=== PATIENT | female | born 1970 | race Caucasian/White ===

== ENCOUNTER → 2018-04-20 | Outpatient (CLI) | payer MEDICAID | LOC: SBRMNEURO 21:00 | PROVIDERS: ATTEND Internal Medicine Sleep Medicine | DX: G47.61 Periodic limb movement disorder (principal) ==

== ENCOUNTER → 2018-06-16 | Outpatient (CLI) | payer MEDICAID | LOC: CIMAGING 16:14 | PROVIDERS: ATTEND Family Medicine | DX: M89.372 Hypertrophy of bone, left ankle and foot (principal); M89.371 Hypertrophy of bone, right ankle and foot | CPT/HCPCS: 73610-PO ==